=== PATIENT | female | born 1995 | race Caucasian/White ===

== ENCOUNTER 2023-06-12 17:36 | Emergency (ER) | payer OTHER ==
[2023-06-12 17:51] VITALS: BP 145/95; O2SAT 100
[2023-06-12] MEDS: IBUPROFEN 600 MG TABLET PO STA (18:17)
[2023-06-12] MEDS: ACETAMINOPHEN 325 MG TABLET PO STA (18:17)
--- NOTE | 2023-06-12 18:32 | ED Physician Documentation ---
PD HPI UPPER EXT INJURY - Stated complaint Stated Complaint: L ELBOW INJ - Chief complaint Chief Complaint: Trauma Ext - Additonal information Additional information: 28-year-old female was rollerskating today she lost her balance and fell on outstretched arm onto her left wrist. She said that she heard a popping noise and is now experiencing left elbow pain pain is worse with any flexion. She said that she feels like it is very full and almost like she wants to pop it. She did not hit her head no loss of consciousness no wrist pain. No abrasions or lacerations. PD PAST MEDICAL HISTORY - Past Medical History Neuro: Migraines Endocrine/Autoimmune: Type 2 diabetes [employer] A[employer]: Other Other Past Medical History: PCOS - Past Surgical History Past Surgical History: No - Present Medications Home Medications: Ambulatory Orders Medication Instructions Recorded Confirmed metFORMIN [Glucophage] 1,000 mg PO BID 10/01/19 06/12/23 FLUoxetine [PROzac] 20 mg PO DAILY 06/12/23 06/12/23 SUMAtriptan [Imitrex] 5 mg PO BID PRN 06/12/23 06/12/23 - Allergies Allergies/Adverse Reactions: Allergies Allergy/AdvReac Type Severity Reaction Status Date / Time No Known Drug Allergies Allergy Verified 06/12/23 18:15 - Social History Does the pt smoke?: No Smoking Status: Never smoker Does the pt drink ETOH?: No Does the pt have substance abuse?: No - Immunizations Immunizations are current?: Yes PD ED PE NORMAL - Vitals Vital signs reviewed: Yes - General General: Alert and oriented X 3, No acute distress, Well developed/nourished - Neck Neck: No bony TTP - Derm Derm: Normal color, Warm and dry, No rash PD ED PE EXPANDED - Extremities Extremities: Tenderness, Limited ROM, Swelling, Joint effusion, Left elbow, Motor intact, Sensory intact, Vascular intact. No: Deformity, Bruising, Abrasion, Decreased/absent pulse Results - Vitals Vitals: Vital Signs - 24 hr 06/12/23 17:43 Temperature 36.5 C Heart Rate 76 Respiratory 18 Rate Blood Pressure 145/95 H O2 Saturation 100 Oxygen O2 Source Room air - Rads (name of study) Left elbow x-rays Relevant Findings:: Final report received, EMP independent interpretation of test, Other (Potentially minimally displaced fracture of the radial head with moderate joint effusion of the left elbow) PD Medical Decision Making - ED course ED course: 28-year-old female presents emergency department for left elbow pain. She does appear to have a minimally displaced radial head fracture on the left arm. Pat ient was placed in a sling with no splint and a referral was placed to [facility] orthopedic surgeon for further evaluation and assessment. Patient's pain was well-controlled Tylenol ibuprofen she denied any need for narcotics. All questions answered patient is safe for discharge. Departure - Departure Disposition: 01 Home, Self Care Clinical Impression: Fracture of radial head, left, closed Qualifiers: Encounter type: initial encounter Fracture alignment: displaced Qualified Code(s): S52.122A - Displaced fracture of head of left radius, initial encounter for closed fracture Condition: Stable Instructions: ED Fx Upper Ext Follow-Up: [facility] [Provider Group] Comments: Thank you for trusting us with your care We have completed x-rays and we have found a radial head fracture. Please follow-up with Ortho outpatient keep your splint on alternate between Tylenol and ibuprofen for pain and discomfort and 20 minutes of ice 1 hour off. Please come back to the emergency department if you are experiencing severe pain that is not getting any better with Tylenol ibuprofen or ice, concerns for severe swelling that is causing her arm to change colors such as blue or white, or any other concerning symptoms. Forms: PCP List Discharge Date/Time: 06/12/23 19:55
--- NOTE | 2023-06-12 19:10 | XRAY Report ---
PROCEDURE: Elbow 3+V LT INDICATIONS: Trauma TECHNIQUE: 3 views of the elbow were acquired. COMPARISON: None. FINDINGS: Bones: There is a potential minimally displaced fracture of the radial head. Soft tissues: There is a mild to moderate joint effusion. No suspicious soft tissue calcifications or masses. IMPRESSION: Potential minimally displaced fracture of the radial head. Mild to moderate joint effusion. Please consider a follow-up CT versus follow-up plain films or further evaluation. Reviewed by: John Strickland MD on 06/12/2023 6:[address] Approved by: John Strickland MD on 06/12/2023 6:[address] Station ID: [id number]
== END 2023-06-12 19:55 | disposition home or self-care (01) ==
LOC: ED 17:36
DX: S52.122A Displaced fracture of head of left radius, initial encounter for closed fracture (principal); W18.39XA Other fall on same level, initial encounter; Y93.51 Activity, roller skating (inline) and skateboarding
CPT/HCPCS: 73080; 99283; 99284; A9270

== ENCOUNTER 2023-06-22 12:21 | Outpatient (CLI) | payer OTHER ==
--- NOTE | 2023-06-22 18:01 | XRAY Report ---
PROCEDURE: Elbow 3+V LT INDICATIONS: ELBOW PAIN, LEFT TECHNIQUE: 3 views of the elbow were acquired. COMPARISON: 06/12/2023. FINDINGS: Bones: No acute fracture or dislocation. Small calcification anterior to the elbow joint seen on lat eral view and is suggestive of age-indeterminate in injury in this area. No suspicious bony lesions. Soft tissues: Small to moderate elbow joint effusion. No suspicious soft tissue calcifications or m asses. IMPRESSION: Small to moderate elbow joint effusion. Age indeterminant injury involving anterior aspect of elbow j oint with small calcification seen on lateral view only. If indicated, CT or MRI of elbow can be done for further evaluation. Reviewed by: Abelardo Gupta MD on 06/22/2023 6:00 PM PDT Approved by: Abelardo Gupta MD on 06/22/2023 6:00 PM PDT Station ID: [id number]
== END 2023-06-22 12:22 | disposition home or self-care (01) ==
LOC: DI.N 12:21
PROVIDERS: ATTEND Orthopaedic Surgery
DX: S59.902A Unspecified injury of left elbow, initial encounter (principal); M25.422 Effusion, left elbow

== ENCOUNTER 2023-07-06 13:24 | Outpatient (CLI) | payer OTHER ==
--- NOTE | 2023-07-06 16:27 | CT Report ---
PROCEDURE: Upper Extremity LT WO INDICATIONS: FX L HUMERUS TECHNIQUE: Noncontrast 2 mm axial sections were acquired through the elbow joint, with coronal and sagittal refo rmats. For radiation dose reduction, the following was used: automated exposure control, adjustment of mA and/or kV according to patient size. COMPARISON: [Radiograph on 06/22/2023 FINDINGS: Image quality: Excellent. Bones: There is a mildly displaced avulsion fracture of the coronoid process. Immediately adjacent t o the coronoid, there is a small well-corticated ossification, likely representing prior injury. In a ddition, there is a nondisplaced fracture of the radial head (series 1014, image 43). The distal rosalinda annemarie is intact. No dislocation of the elbow. Soft tissues: Moderate elbow effusion. The biceps and the brachialis tendon is unremarkable. The tri ceps tendon is unremarkable. Mild subcutaneous edema of the posterior elbow. IMPRESSION: 1. Acute, mildly displaced small avulsion fracture of the coronoid process. 2.Additional well-corticated ossification adjacent to the coronoid process, representing prior injury . 3.Nondisplaced fracture of the radial head. 4.Moderate elbow effusion. Reviewed by: Nguyen Irby MD on 07/06/2023 4:25 PM PDT Approved by: Nguyen Irby MD on 07/06/2023 4:25 PM PDT Station ID: [id number]
== END 2023-07-06 13:25 | disposition home or self-care (01) ==
LOC: DI 13:24
PROVIDERS: ATTEND Orthopaedic Surgery
DX: S52.042A Displaced fracture of coronoid process of left ulna, initial encounter for closed fracture (principal); S52.125A Nondisplaced fracture of head of left radius, initial encounter for closed fracture; M25.422 Effusion, left elbow

== ENCOUNTER 2023-07-22 14:12 | Outpatient (CLI) | payer OTHER ==
--- NOTE | 2023-07-22 18:06 | XRAY Report ---
PROCEDURE: Elbow 3+V LT INDICATIONS: LEFT HUMERUS FRACTURE TECHNIQUE: 3 views of the elbow were acquired. COMPARISON: CT on 07/06/2023. Prior radiograph on 06/22/2023. FINDINGS/IMPRESSION: 2 small ossifications about the coronoid process, representing prior injury. Nondisplaced radial head fracture, previously better appreciated on CT. Large elbow effusion. No elbow dislocation. Reviewed by: Nguyen Irby MD on 07/22/2023 6:05 PM PDT Approved by: Nguyen Irby MD on 07/22/2023 6:05 PM PDT Station ID: [id number]
== END 2023-07-22 14:13 | disposition home or self-care (01) ==
LOC: DI 14:12
PROVIDERS: ATTEND Orthopaedic Surgery
DX: S42.492A Other displaced fracture of lower end of left humerus, initial encounter for closed fracture (principal); M25.422 Effusion, left elbow